=== PATIENT | female | born 1995 | race Caucasian/White ===

== ENCOUNTER 2019-12-10 01:06 | Emergency (ER) | payer MEDICARE, MEDICAID ==
[2019-12-10] MEDS ORDERED: Lidocaine 2% VISCOUS* 15 ML UDC PO ONE (01:34)
[2019-12-10] MEDS ORDERED: Al Hydrox/Mg Hydrox/Simet LIQ* 30 ML UDC PO ONE (01:34)
--- NOTE | 2019-12-10 01:39 | ED ---
Abdominal Pain/Female - HPI Summary HPI Summary: 24-year-old female with a significant past history of hypothyroidism presents to the emergency department today complaining of left-sided 6 out of 10 abdominal pain for 2 weeks. Patient states she was seen by her primary care provider and given omeprazole 20 mg daily for suspected gastric ulcer however she states this is not controlling her pain. Patient has an appointment with GI in one week however she could not wait until then for further evaluation. Patient denies blood per rectum or dark stools, fever. Patient denies vomiting. Patient states her pain is made worse approximately 30 minutes after eating however immediately after eating her pain is better. Patient otherwise feels well and denies fever, chest pain, shortness of breath, nausea, vomiting, diarrhea. - History of Current Complaint Chief Complaint: EDAbdPain Stated Complaint: ABD PAIN PER PT Time Seen by Provider: 12/10/19 01:21 Hx Obtained From: Patient Onset/Duration: Gradual Onset Timing: Constant Severity Initially: Moderate Severity Currently: Moderate Pain Intensity: 7 Pain Scale Used: 0-10 Numeric Location: Discrete At: LUQ, Discrete At: LLQ Radiates: No Character: Sharp, Burning Aggravating Factor(s): Food Alleviating Factor(s): Antacids Associated Signs and Symptoms: Positive: Nausea. Negative: Fever, Back Pain, Constipation, Blood in Stool, Decreased Appetite, Vaginal Bleeding, Vomiting, Diarrhea Allergies/Adverse Reactions: Allergies Allergy/AdvReac Type Severity Reaction Status Date / Time MS Azithromycin Allergy Rash Verified 12/10/19 01:17 [Azithromycin] MS Cefpodoxime [From Vantin] Allergy Rash Verified 12/10/19 01:17 Home Medications: Home Medications PARoxetine HCL TAB* [Paxil TAB*] 30 mg PO DAILY 11/14/14 [History Confirmed ] Aspirin TAB* [Aspirin 325 MG TAB*] 325 mg PO DAILY 12/01/14 [History Confirmed 02/22/15] Lisinopril TAB* [Prinivil TAB*] 5 mg PO DAILY 12/01/14 [History Confirmed ] Metoprolol Tartrate TAB* [Lopressor TAB*] 25 mg PO BID 12/01/14 [History Confirmed 02/22/15] PMH/Surg Hx/FS Hx/Imm Hx Cardiovascular History: Reports: Other Cardiovascular Problems/Disorders - PERICARDIAL DRAIN- CARDIAC TAMPONADE Denies: Hx Angina, Hx Coronary Artery Disease, Hx Hypercholesterolemia, Hx Hypertension, Hx Myocardial Infarction, Hx Valvular Heart Disease Respiratory History: Reports: Hx Pleural Effusion - NEW DX S/P THORACENTESIS 500ML OUT Denies: Hx Asthma, Hx Chronic Obstructive Pulmonary Disease (COPD) Sensory History: Reports: Hx Contacts or Glasses Opthamlomology History: Reports: Hx Contacts or Glasses Neurological History: Reports: Hx Developmental Delay, 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 Adenoids out as a child Infectious Disease History: No Infectious Disease History: Denies: History Other Infectious Disease, Traveled Outside the [place] in Last 30 Days - Social History Alcohol Use: None Substance Use Type: Reports: None Smoking Status (MU): Never Smoked Tobacco Review of Systems Constitutional: Negative Eyes: Negative ENT: Negative Cardiovascular: Negative Respiratory: Negative Positive: Abdominal Pain, Nausea. Negative: Vomiting, Diarrhea Genitourinary: Negative Musculoskeletal: Negative Skin: Negative Neurological/Mental Status: Negative Psychological: Normal All Other Systems Reviewed And Are Negative: Yes Physical Exam - Summary Physical Exam Summary: Patient is in no acute distress. Inspection of the abdomen reveals no ecchymosis or masses. Auscultation reveals normal active bowel sounds. Palpation reveals tenderness in the left lower quadrant as well as the left upper quadrant. No peritoneal findings, guarding, rigidity. Patient does not appear to have an acute abdomen. Triage Information Reviewed: Yes Vital Signs On Initial Exam: Initial Vitals Temp Pulse Resp BP Pulse Ox 97.9 F 109 16 133/89 98 12/10/19 01:15 12/10/19 01:15 12/10/19 01:15 12/10/19 01:15 12/10/19 01:15 Vital Signs Reviewed: Yes Appearance: Positive: Well-Appearing, No Pain Distress, Well-Nourished Skin: Positive: Warm, Skin Color Reflects Adequate Perfusion Eyes: Positive: EOMI, JONATHAN ENT: Positive: Hearing grossly normal Respiratory/Lung Sounds: Positive: Clear to Auscultation, Breath Sounds Present Cardiovascular: Positive: RRR, S1, S2 Abdomen Description: Positive: No Organomegaly, Soft. Negative: Distended, Guarding Bowel Sounds: Positive: Present Musculoskeletal: Positive: Strength/ROM Intact Neurological: Positive: Sensory/Motor Intact, Alert, Oriented to Person Place, Time, Normal Gait, Facial Symmetry, Speech Normal Psychiatric: Positive: Normal, Affect/Mood Appropriate AVPU Assessment: Alert Procedures - Sedation Patient Received Moderate/Deep Sedation with Procedure: No Diagnostics - Vital Signs Vital Signs Temp Pulse Resp BP Pulse Ox 12/10/19 01:15 97.9 F 109 16 133/89 98 - Laboratory Lab Statement: Any lab studies that have been ordered have been reviewed, and results considered in the medical decision making process. Abdominal Pain Fem Course/Dx - Course Course Of Treatment: Patient was evaluated in the emergency department today for abdominal pain. Vitals noted and stable. Patient afebrile. Patient given viscous lidocaine and Maalox plus for possible gastric ulcer. Laboratory studies are obtained and pending. Patient signed out to Gualberto Cervantes M.D. at 3:30. - Diagnoses Differential Diagnosis: Positive: Constipation, Diverticulitis, Peptic Ulcer Disease Provider Diagnoses: Abdominal pain Discharge ED - Sign-Out/Discharge Documenting (check all that apply): Sign-Out Patient Signing out patient TO: Gualberto Cervantes Receiving patient FROM: Alfonzo Gallego - Discharge Plan Referrals: Anahi Wolfe MD [Primary Care Provider] -
[2019-12-10 04:51] LABS: ABS Eosinophils 0.1 10^3/ul (0-0.6); ABS Lymphocytes 1.5 10^3/ul (1.0-4.8); ABS Monocytes 0.7 10^3/ul (0-0.8); ABS Neutrophils 5.9 10^3/ul (1.5-7.7); Eosinophil % 0.9 %; Hematocrit 42 % (35-47); Hemoglobin 14.5 g/dL (12.0-16.0); Lymphocyte % 18.5 %; Mean Corpuscular HGB Conc 34 g/dL (31-36); Mean Corpuscular Hemoglobin 32 pg (27-31); Mean Corpuscular Volume 92 fL (80-97); Mean Platelet Volume 8.9 fL (7.4-10.4); Platelet Count 152 10^3/uL (150-450); Red Blood Count 4.59 10^6 /uL (3.70-4.87); Red Cell Distribution Width 13 % (10-15); White Blood Count 8.2 10^3/uL (3.5-10.8)
--- NOTE | 2019-12-10 04:51 | ED ---
Progress - Progress Note Progress Note: Patient is a sign out from Alfonzo Gallego to Dr. Cervantes at change of shifts at 0330 pending laboratory studies and dispo. Course/Dx - Course Course Of Treatment: Patient was evaluated in the emergency department today for abdominal pain. Vitals noted and stable. Patient afebrile. Patient given viscous lidocaine and Maalox plus for possible gastric ulcer. Laboratory studies are unremarkable. Patient's diagnosis is acute abdominal pain and peptic ulcer. She will be discharged home. Patient is feeling better, agrees and understands the plan. - Diagnoses Provider Diagnoses: Abdominal pain, Peptic ulcer Is Visit Related: No Discharge ED - Sign-Out/Discharge Documenting (check all that apply): Patient Departure - discharge home - Discharge Plan Condition: Good Disposition: HOME Patient Education Materials: Peptic Ulcer (ED), Acute Abdominal Pain (ED) Referrals: Anahi Wolfe MD [Primary Care Provider] - Additional Instructions: Continue the omeprazole, you can take liquid antacid periodically if you find it helps. Your blood work tonight was good, no sign of internal bleeding or other complication. - Billing Disposition and Condition Condition: GOOD Disposition: Home - Attestation Statements Document Initiated by Scribe: Yes Documenting Scribe: Sven Marshall Provider For Whom Scribe is Documenting (Include Credential): Dr. Gualberto Cervantes Scribe Attestation: I, Sven Marshall, scribed for Dr. Gualberto Cervantes on 12/11/19 at 0215. Scribe Documentation Reviewed: Yes Provider Attestation: The documentation as recorded by the scribeSven accurately reflects the service I personally performed and the decisions made by me, Dr. Gualberto Cervantes Status of Scribe Document: Viewed
[2019-12-10 04:55] LABS: CO2 Carbon Dioxide 15 mmol/L (22-32); Calcium 9.6 mg/dL (8.6-10.3); Chloride 109 mmol/L (101-111); Sodium 135 mmol/L (135-145)
[2019-12-10 04:59] LABS: Anion Gap 11 mmol/L (2-11); Potassium 4.6 mmol/L (3.5-5.0)
[2019-12-10 05:02] LABS: ALT 25 U/L (7-52); Albumin/Globulin Ratio 1.7 (1-3); Alkaline Phosphatase 76 U/L (34-104); BUN/Creatinine Ratio 18.5 (8-20); Blood Urea Nitrogen 15 mg/dL (6-24); C Reactive Protein < 1.00 mg/L (<8.01); EGFR African American 104.2 (>60); EGFR Non-African American 86.2 (>60); Globulin 2.4 g/dL (2-4); Glucose 90 mg/dL (70-100); Total Protein 6.4 g/dL (6.4-8.9)
[2019-12-10 05:03] LABS: AST 25 U/L (13-39)
[2019-12-10 05:56] VITALS: BP 129/81
== END 2019-12-10 05:55 | disposition home or self-care (01) ==
LOC: ED 01:06
DX: K27.9 Peptic ulcer, site unspecified, unspecified as acute or chronic, without hemorrhage or perforation (principal); R10.9 Unspecified abdominal pain; E03.9 Hypothyroidism, unspecified; Z79.899 Other long term (current) drug therapy; Z86.79 Personal history of other diseases of the circulatory system; J90 Pleural effusion, not elsewhere classified; F41.9 Anxiety disorder, unspecified
CPT/HCPCS: 36415; 80053; 83690; 85025; 86140; 99282; A9270-GY